=== PATIENT | male | born 1985 | race Caucasian/White ===

== ENCOUNTER → 2017-09-03 | Outpatient (CLI) | payer OTHER ==
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
== END ==
LOC: HRAD 15:16
DX: S09.93XA Unspecified injury of face, initial encounter (principal); Y09 Assault by unspecified means
CPT/HCPCS: 70486